=== PATIENT | male | born 1965 | race Caucasian/White ===

== ENCOUNTER 2017-01-26 19:05 | Emergency (ER) | payer MEDICAID ==
[2017-01-26 21:16] VITALS: BP 132/89
== END 2017-01-26 21:16 | disposition home or self-care (01) ==
LOC: ED 19:05
DX: R06.02 Shortness of breath (principal); R09.81 Nasal congestion; N40.0 Benign prostatic hyperplasia without lower urinary tract symptoms; Z79.899 Other long term (current) drug therapy
CPT/HCPCS: 82962

== ENCOUNTER 2017-01-29 22:58 | Emergency (ER) | payer MEDICAID ==
[2017-01-29 23:36] VITALS: BP 139/85
== END 2017-01-29 23:36 | disposition home or self-care (01) ==
LOC: ED 22:58
DX: R51 Headache (principal); Z88.1 Allergy status to other antibiotic agents